=== PATIENT | female | born 1995 | race African-American/Black ===

== ENCOUNTER 2018-06-28 15:20 | Emergency (ER) | payer OTHER ==
[~2018-06-28] VITALS: Ht 180.3 cm; Wt 113.4 kg
[2018-06-28 15:21] VITALS: BP 139/87
== END 2018-06-28 16:02 | disposition home or self-care (01) ==
LOC: ER 15:20
DX: S91.202A Unspecified open wound of left great toe with damage to nail, initial encounter (principal); X58.XXXA Exposure to other specified factors, initial encounter; Y93.89 Activity, other specified; Y92.89 Other specified places as the place of occurrence of the external cause; Y99.8 Other external cause status